=== PATIENT | female | born 1960 | race American Indian/Alaskan Native ===

== ENCOUNTER 2019-09-25 02:33 | Emergency (ER) | payer SELFPAY ==
[2019-09-25] MEDS ORDERED: LORazepam 2 MG/ML VIAL IV ONE (03:01)
--- NOTE | 2019-09-25 03:36 | Emergency Department Report ---
<NAHUM FLANAGAN - Last Filed: 09/25/19 05:42> ED General Adult HPI - General Chief complaint: High BP Stated complaint: HYPERTENSION Time Seen by Provider: 09/25/19 02:53 Source: EMS Mode of arrival: Stretcher Limitations: No Limitations - History of Present Illness Initial comments: 58-year-old female with a past medical history of COPD and hypertension presents to the hospital from [facility] with hypertension. Patient was admitted to [place] today for heroin and alcohol detox. Her blood pressure was elevated and she received clonidine 0.1 and Suboxone at 1 AM. Patient states she has had a headache intermittently today. No complaints of blurred vision, nausea, vomiting, or focal weakness or numbness. Patient complains of generalized intermittent body cramps and is restless and uncomfortable due to these cramps during my examination. Patient does not take any chronic hypertensive medication at home. - Related Data Previous Rx's Medication Instructions Recorded Last Taken Type Ciprofloxacin HCl [Ciprofloxacin 500 mg PO Q12HR 10 Days #20 tab 09/25/19 Unknown Rx TAB] amLODIPine 10 mg PO DAILY #30 tab 09/25/19 Unknown Rx hydroCHLOROthiazide [Hctz] 12.5 mg PO QDAY #30 capsule 09/25/19 Unknown Rx labetaloL [Labetalol 100mg TAB] 100 mg PO BID #60 tablet 09/25/19 Unknown Rx metroNIDAZOLE [Flagyl] 500 mg PO Q12HR 10 Days #20 tab 09/25/19 Unknown Rx Allergies Allergy/AdvReac Type Severity Reaction Status Date / Time No Known Allergies Allergy Verified 09/25/19 05:57 ED Review of Systems Comment: All other systems reviewed and negative ED Past Medical Hx - Past Medical History Previous Medical History?: Yes Hx Hypertension: Yes Hx COPD: Yes - Surgical History Past Surgical History?: No - Social History Smoking Status: Current Every Day Smoker Substance Use Type: Alcohol - Medications Home Medications: Home Medications Medication Instructions Recorded Confirmed Last Taken Type Ciprofloxacin HCl [Ciprofloxacin 500 mg PO Q12HR 10 Days #20 tab 09/25/19 Unknown Rx TAB] amLODIPine 10 mg PO DAILY #30 tab 09/25/19 Unknown Rx hydroCHLOROthiazide [Hctz] 12.5 mg PO QDAY #30 capsule 09/25/19 Unknown Rx labetaloL [Labetalol 100mg TAB] 100 mg PO BID #60 tablet 09/25/19 Unknown Rx metroNIDAZOLE [Flagyl] 500 mg PO Q12HR 10 Days #20 tab 09/25/19 Unknown Rx ED Physical Exam - General Limitations: No Limitations - Other Other exam information: General: No acute distress Head: Atraumatic Eyes: normal appearance ENT: Moist mucous membranes Neck: Normal appearance, no midline tenderness Chest: Clear to auscultation bilaterally CV: Mild tachycardia regular rhythm Abdomen: Soft, normal bowel sounds, nontender, nondistended, no rebound or guarding Back: Normal inspection Extremity: Normal inspection, full range of motion Neuro: Alert O x 3, no facial asymmetry, speech clear, no gross motor sensory deficit Psych: Restless, uncomfortable due to generalized muscle spasm Skin: No rash ED Medical Decision Making - Lab Data Result diagrams: 09/25/19 02:54 09/25/19 02:54 Lab Results 09/25/19 09/25/19 09/25/19 Range/Units 02:54 02:54 02:56 WBC 18.0 H (4.5-11.0) K/mm3 RBC 6.19 H (3.65-5.03) M/mm3 Hgb 17.0 H (10.1-14.3) gm/dl Hct 51.3 H (30.3-42.9) % MCV 83 (79-97) fl MCH 28 (28-32) pg MCHC 33 (30-34) % RDW 14.1 (13.2-15.2) % Plt Count 295 (140-440) K/mm3 Lymph % (Auto) 8.1 L (13.4-35.0) % Cowley % (Auto) 3.9 (0.0-7.3) % Eos % (Auto) 0.0 (0.0-4.3) % Baso % (Auto) 0.5 (0.0-1.8) % Lymph # 1.5 (1.2-5.4) K/mm3 Cowley # 0.7 (0.0-0.8) K/mm3 Eos # 0.0 (0.0-0.4) K/mm3 Baso # 0.1 (0.0-0.1) K/mm3 Seg Neutrophils % 87.5 H (40.0-70.0) % Seg Neutrophils # 15.7 H (1.8-7.7) K/mm3 Sodium 137 (137-145) mmol/L Potassium 3.6 (3.6-5.0) mmol/L Chloride 95.0 L (98-107) mmol/L Carbon Dioxide 23 (22-30) mmol/L Anion Gap 23 mmol/L BUN 13 (7-17) mg/dL Creatinine 0.8 (0.6-1.2) mg/dL Estimated GFR > 60 ml/min BUN/Creatinine Ratio 16 % Glucose 183 H (65-100) mg/dL Calcium 10.1 (8.4-10.2) mg/dL Magnesium 2.30 (1.7-2.3) mg/dL Total Bilirubin 0.60 (0.1-1.2) mg/dL AST 22 (5-40) units/L ALT 20 (7-56) units/L Alkaline Phosphatase 113 (35-129) units/L Total Protein 9.4 H (6.3-8.2) g/dL Albumin 5.2 H (3.9-5) g/dL Albumin/Globulin Ratio 1.2 % Urine Color (Yellow) Urine Turbidity (Clear) Urine pH (5.0-7.0) Ur Specific [place] (1.003-1.030) Urine Protein (Negative) mg/dL Urine Glucose (UA) (Negative) mg/dL Urine Ketones (Negative) mg/dL Urine Blood (Negative) Urine Nitrite (Negative) Urine Bilirubin (Negative) Urine Urobilinogen (<2.0) mg/dL Ur Leukocyte Esterase (Negative) Urine WBC (Auto) (0.0-6.0) /HPF Urine RBC (Auto) (0.0-6.0) /HPF U Epithel Cells (Auto) (0-13.0) /HPF Hyaline Casts /LPF Urine Mucus /HPF 08/18/20 Range/Units 04:18 WBC (4.5-11.0) K/mm3 RBC (3.65-5.03) M/mm3 Hgb (10.1-14.3) gm/dl Hct (30.3-42.9) % MCV (79-97) fl MCH (28-32) pg MCHC (30-34) % RDW (13.2-15.2) % Plt Count (140-440) K/mm3 Lymph % (Auto) (13.4-35.0) % Cowley % (Auto) (0.0-7.3) % Eos % (Auto) (0.0-4.3) % Baso % (Auto) (0.0-1.8) % Lymph # (1.2-5.4) K/mm3 Cowley # (0.0-0.8) K/mm3 Eos # (0.0-0.4) K/mm3 Baso # (0.0-0.1) K/mm3 Seg Neutrophils % (40.0-70.0) % Seg Neutrophils # (1.8-7.7) K/mm3 Sodium (137-145) mmol/L Potassium (3.6-5.0) mmol/L Chloride (98-107) mmol/L Carbon Dioxide (22-30) mmol/L Anion Gap mmol/L BUN (7-17) mg/dL Creatinine (0.6-1.2) mg/dL Estimated GFR ml/min BUN/Creatinine Ratio % Glucose (65-100) mg/dL Calcium (8.4-10.2) mg/dL Magnesium (1.7-2.3) mg/dL Total Bilirubin (0.1-1.2) mg/dL AST (5-40) units/L ALT (7-56) units/L Alkaline Phosphatase (35-129) units/L Total Protein (6.3-8.2) g/dL Albumin (3.9-5) g/dL Albumin/Globulin Ratio % Urine Color Yellow (Yellow) Urine Turbidity Clear (Clear) Urine pH 5.0 (5.0-7.0) Ur Specific [place] 1.024 (1.003-1.030) Urine Protein >500 (Negative) mg/dL Urine Glucose (UA) 50 (Negative) mg/dL Urine Ketones 80 (Negative) mg/dL Urine Blood Lg (Negative) Urine Nitrite Neg (Negative) Urine Bilirubin Neg (Negative) Urine Urobilinogen < 2.0 (<2.0) mg/dL Ur Leukocyte Esterase Neg (Negative) Urine WBC (Auto) 3.0 (0.0-6.0) /HPF Urine RBC (Auto) 7.0 (0.0-6.0) /HPF U Epithel Cells (Auto) 1.0 (0-13.0) /HPF Hyaline Casts 3 /LPF Urine Mucus 1+ /HPF - EKG Data -: EKG Interpreted by Me EKG shows normal: sinus rhythm, ST-T waves (NO STEMI) Rate: normal (84) - Radiology Data Radiology results: report reviewed CT head/brain wo con INDICATION / CLINICAL INFORMATION: Patient complains of a "Generalized" headache x 2 days.. TECHNIQUE: Axial CT imaging of the brain was obtained without contrast. Coronal and sagittal reformatted imaging obtained and reviewed. All CT scans at this location are performed using CT dose reduction for ALARA by means of automated exposure control. COMPARISON: None available. FINDINGS: No intracranial hemorrhage, mass, or midline shift is present. No extra-axial fluid collection or suggestion of acute territorial infarction. The ventricular system and basilar cisterns are unremarkable. Visualized paranasal sinuses and mastoid air cells are well aerated and clear. No calvarial abnormality. IMPRESSION: 1. Negative noncontrasted head CT - Medical Decision Making Patient presents to the ED with uncontrolled hypertension from [facility] where she has been admitted x1 day for alcohol and drug withdrawal. Patient received clonidine 0.1 mg p.o. prior to arrival. Patient's blood pressure started to trend downward further after Ativan IV provided for intermittent muscle spasms. Additional blood pressure can control achieved with the labetalol 10 mg IV. Patient does endorse a history of hypertension but is noncompliant with medications. Patient has underlying hypertension and active withdrawal from multiple substances might be contributing to poorly controlled blood pressure. CT head, EKG, and chest x-ray unremarkable. Patient does have a leukocytosis without signs and symptoms of infection in the urine or on chest x-ray. UA reveals ketosis suggesting dehydration which might also be contributing to increase WBC and hematocrit levels on CBC. Patient will be discharged back to [facility] with labetalol 100 mg twice daily prescription for hypertension. Vital signs reviewed and patient is documented as tachypneic however, I believe these are erroneous measurements due to artifact on the monitor and patient does not have any tachypnea, hypoxia, or respiratory distress in the ED. after labetolol 10mgIV bp still elevate 189/100. pt remains asymptomatic but I suspect this will be too elevated for patient to be re-accepted to the [facility]. Additional labetalol 10 mg IV ordered. Patient has been prepped for discharge but will be signed out to oncoming provider Dr. Grant to reassess in provide additional meds as needed for better blood pressure control prior to discharge 1/2 ns ordered during ed stay however pt is tolerating po and this can be discontinued upon d/c. NS not given due to incr bp and possible increased salt load. Patient prepped for discharge assuming no significant issues prohibiting discharge Critical Care Time: No ED Disposition Clinical Impression: Uncontrolled hypertension, Noncompliance with medication regimen, Alcohol abuse, Heroin abuse, Colitis Disposition: DC-01 TO HOME OR SELFCARE Is pt being admited?: No Does the pt Need Aspirin: No Condition: Stable Instructions: Hypertension (ED) Additional Instructions: Take the medication as prescribed. Follow-up with your doctor or doctor/clinic provided. Return if symptoms worsen as indicated by your discharge instructions. Prescriptions: amLODIPine 10 mg PO DAILY #30 tab Ciprofloxacin HCl [Ciprofloxacin TAB] 500 mg PO Q12HR 10 Days #20 tab metroNIDAZOLE [Flagyl] 500 mg PO Q12HR 10 Days #20 tab hydroCHLOROthiazide [Hctz] 12.5 mg PO QDAY #30 capsule labetaloL [Labetalol 100mg TAB] 100 mg PO BID #60 tablet Referrals: PRIMARY CARE, [Primary Care Provider] - 3-5 Days [facility] [Provider Group] - 3-5 Days <MONTSE GRANT - Last Filed: 09/25/19 15:18> ED Review of Systems ROS: Stated complaint: HYPERTENSION Other details as noted in HPI ED Course Vital Signs 09/25/19 09/25/19 09/25/19 02:34 02:38 02:46 Temperature 98.6 F Pulse Rate 87 74 72 Respiratory 31 H 15 37 H Rate Blood Pressure 214/124 Blood Pressure 214/124 [RIGHT ARM] O2 Sat by Pulse 98 95 96 Oximetry 09/25/19 09/25/19 09/25/19 03:00 03:16 03:30 Temperature Pulse Rate 94 H 85 92 H Respiratory 27 H 43 H 37 H Rate Blood Pressure 214/124 195/124 Blood Pressure [RIGHT ARM] O2 Sat by Pulse 98 96 96 Oximetry 09/25/19 09/25/19 09/25/19 03:45 04:00 04:16 Temperature Pulse Rate 118 H 90 88 Respiratory 25 H 43 H 44 H Rate Blood Pressure 192/127 192/127 192/127 Blood Pressure [RIGHT ARM] O2 Sat by Pulse 99 97 97 Oximetry 09/25/19 09/25/19 09/25/19 04:55 05:00 05:01 Temperature Pulse Rate Respiratory Rate Blood Pressure 188/108 201/120 188/104 Blood Pressure [RIGHT ARM] O2 Sat by Pulse Oximetry 09/25/19 09/25/19 09/25/19 05:30 06:00 06:02 Temperature Pulse Rate 80 Respiratory Rate Blood Pressure 212/125 209/123 209/123 Blood Pressure [RIGHT ARM] O2 Sat by Pulse 96 Oximetry 09/25/19 09/25/19 09/25/19 06:30 07:00 07:38 Temperature Pulse Rate 72 72 81 Respiratory 36 H 32 H 28 H Rate Blood Pressure 209/118 197/104 197/104 Blood Pressure [RIGHT ARM] O2 Sat by Pulse 93 90 Oximetry 09/25/19 09/25/19 09/25/19 08:00 08:30 08:49 Temperature Pulse Rate 73 90 Respiratory 34 H 25 H Rate Blood Pressure 223/134 197/104 223/134 Blood Pressure [RIGHT ARM] O2 Sat by Pulse 97 97 Oximetry 09/25/19 09/25/19 09/25/19 09:25 09:30 10:00 Temperature Pulse Rate Respiratory Rate Blood Pressure 161/95 208/125 194/107 Blood Pressure [RIGHT ARM] O2 Sat by Pulse Oximetry 09/25/19 09/25/19 09/25/19 10:30 11:00 11:28 Temperature Pulse Rate Respiratory Rate Blood Pressure 205/120 208/123 203/123 Blood Pressure [RIGHT ARM] O2 Sat by Pulse Oximetry 09/25/19 09/25/19 09/25/19 11:30 12:00 12:30 Temperature Pulse Rate 86 98 H 95 H Respiratory 30 H 24 38 H Rate Blood Pressure 199/108 154/94 159/92 Blood Pressure [RIGHT ARM] O2 Sat by Pulse 98 97 98 Oximetry 09/25/19 09/25/19 09/25/19 13:00 13:30 13:49 Temperature Pulse Rate 91 H 87 Respiratory 17 35 H Rate Blood Pressure 160/106 160/106 167/102 Blood Pressure [RIGHT ARM] O2 Sat by Pulse 97 98 Oximetry 09/25/19 14:01 Temperature Pulse Rate Respiratory Rate Blood Pressure 126/70 Blood Pressure [RIGHT ARM] O2 Sat by Pulse Oximetry ED Medical Decision Making - Lab Data Result diagrams: 09/25/19 02:54 09/25/19 02:54 - Radiology Data CT abdomen pelvis w con INDICATION / CLINICAL INFORMATION: Patient complains of abdominal pain with vomiting.. TECHNIQUE: Axial CT imaging of abdomen and pelvis was obtained with IV contrast. Coronal and sagittal reformatted imaging obtained and reviewed. All CT scans at this location are performed using CT dose reduction for ALARA by means of automated exposure control. COMPARISON: None available. FINDINGS: CT abdomen with IV contrast demonstrates normal appearance of the liver, spleen, pancreas, kidneys, and adrenal glands. No obvious gallbladder pathology or biliary dilatation. No renal mass or hydronephrosis. CT pelvis with contrast demonstrates normal appearance of the appendix. No pelvic mass, free fluid, or adenopathy. There is mild inflammatory change throughout the colon consistent with colitis. The remainder of the GI tract is unremarkable. Visualized lung bases are grossly clear. Review of osseous structures does not demonstrate any acute significant skeletal abnormality. There is grade 1 spondylolisthesis of L5/S1. IMPRESSION: 1. There is mild inflammatory change throughout the colon, consistent with mild colitis. 2. Incidentally noted grade 1 spondylolisthesis, L5-S1. Signer Name: Yesica Tran MD Signed: 09/25/2019 6:36 AM Workstation Name: [id number] - Medical Decision Making 58-year-old female signed out to me by my colleague for uncontrolled hypertension. Patient also has elevated WBCs of 18. Patient reported to me that she has been having some abdominal pain, vomiting and diarrhea. CT abdomen pelvis was obtained which shows mild colitis. Chest x-ray and urine are both negative. This is likely the etiology of her elevated white count. Patient given flagyl and levaquin. Patient has received multiple doses of antihypertensives, however still unable to get BP under control. Will admit to hospitalist for further management. Critical care attestation.: If time is entered above; I have spent that time in minutes in the direct care of this critically ill patient, excluding procedure time. ED Disposition Is pt being admited?: Yes Time of Disposition: 11:58
--- NOTE | 2019-09-25 04:04 | Cat Scan Report ---
CT head/brain wo con INDICATION / CLINICAL INFORMATION: Patient complains of a "Generalized" headache x 2 days.. TECHNIQUE: Axial CT imaging of the brain was obtained without contrast. Coronal and sagittal reformatted imaging obtained and reviewed. All CT scans at this location are performed using CT dose reduction for ALAR A by means of automated exposure control. COMPARISON: None available. FINDINGS: No intracranial hemorrhage, mass, or midline shift is present. No extra-axial fluid collection or sug gestion of acute territorial infarction. The ventricular system and basilar cisterns are unremarkable . Visualized paranasal sinuses and mastoid air cells are well aerated and clear. No calvarial abnormali ty. IMPRESSION: 1. Negative noncontrasted head CT Signer Name: Yesica Tran MD Signed: 09/25/2019 3:59 AM Workstation Name: [id number]
[2019-09-25 04:08] LABS: Basophils # (Auto) 0.1 K/mm3 (0.0-0.1); Basophils % (Auto) 0.5 % (0.0-1.8); Hematocrit 51.3 % (30.3-42.9); Lymphocytes # (Auto) 1.5 K/mm3 (1.2-5.4); Lymphocytes % (Auto) 8.1 % (13.4-35.0); Mean Corpuscular HGB Conc 33 % (30-34); Mean Corpuscular Volume 83 fl (79-97); Monocytes # (Auto) 0.7 K/mm3 (0.0-0.8); Monocytes % (Auto) 3.9 % (0.0-7.3); Platelet Count 295 K/mm3 (140-440); Red Blood Count 6.19 M/mm3 (3.65-5.03); Red Cell Distribution Width 14.1 % (13.2-15.2)
[2019-09-25 04:23] LABS: Alanine Aminotransferase 20 units/L (7-56); Albumin 5.2 g/dL (3.9-5); BUN/Creatinine Ratio 16; Blood Urea Nitrogen 13 mg/dL (7-17); Calcium 10.1 mg/dL (8.4-10.2); Hemolysis Index 23
[2019-09-25 04:53] LABS: Bilirubin,Urine NEG (Negative); Blood,Urine LG (Negative); Color,Urine Yellow (Yellow); Hyaline Casts,Urine 3 /LPF; Mucus,Urine 1+ /HPF; Urobilinogen,Urine < 2.0 mg/dL (<2.0)
[2019-09-25 05:10] LABS: Protein,Urine >500 mg/dL (Negative)
--- NOTE | 2019-09-25 05:14 | XRay Report ---
CHEST 1 VIEW INDICATION / CLINICAL INFORMATION: leukocytosis. COMPARISON: None available. FINDINGS: SUPPORT DEVICES: None. HEART / MEDIASTINUM: No significant abnormality. LUNGS / PLEURA: No significant pulmonary or pleural abnormality. No pneumothorax. ADDITIONAL FINDINGS: No significant additional findings. IMPRESSION: 1. No acute findings. No evidence of pneumonia. Signer Name: Yesica Tran MD Signed: 09/25/2019 5:09 AM Workstation Name: [id number]
[2019-09-25 05:27] LABS: Bacteria,Urine 1+ /HPF (Negative)
[2019-09-25] MEDS ORDERED: SODIUM CHLORIDE 0.45% 1000 ML 1,000 ML IV SCH (06:00)
[2019-09-25] MEDS ORDERED: hydrALAZINE 20 MG/1 ML INJ IV ONE ×3 (08:05→13:00)
[2019-09-25] MEDS ORDERED: metroNIDAZOLE 500 MG TAB PO ONE (10:58)
[2019-09-25] MEDS ORDERED: levoFLOXacin 500 MG TAB PO ONE (10:59)
--- NOTE | 2019-09-25 11:10 | Cat Scan Report ---
CT abdomen pelvis w con INDICATION / CLINICAL INFORMATION: Patient complains of abdominal pain with vomiting.. TECHNIQUE: Axial CT imaging of abdomen and pelvis was obtained with IV contrast. Coronal and sagittal reformatte d imaging obtained and reviewed. All CT scans at this location are performed using CT dose reduction for ALARA by means of automated exposure control. COMPARISON: None available. FINDINGS: CT abdomen with IV contrast demonstrates normal appearance of the liver, spleen, pancreas, kidneys, a nd adrenal glands. No obvious gallbladder pathology or biliary dilatation. No renal mass or hydroneph rosis. CT pelvis with contrast demonstrates normal appearance of the appendix. No pelvic mass, free fluid, o r adenopathy. There is mild inflammatory change throughout the colon consistent with colitis. The remainder of the GI tract is unremarkable. Visualized lung bases are grossly clear. Review of osseous structures does not demonstrate any acute significant skeletal abnormality. There i s grade 1 spondylolisthesis of L5/S1. IMPRESSION: 1. There is mild inflammatory change throughout the colon, consistent with mild colitis. 2. Incidentally noted grade 1 spondylolisthesis, L5-S1. Signer Name: Yesica Tran MD Signed: 09/25/2019 7:36 AM Workstation Name: [id number]
[2019-09-25] MEDS ORDERED: cloNIDine 0.2 MG TAB PO ONE (13:00)
[2019-09-25 16:56] VITALS: BP 135/86
== END 2019-09-25 16:34 | disposition home or self-care (01) ==
LOC: ED 02:33
DX: I10 Essential (primary) hypertension (principal); F10.10 Alcohol abuse, uncomplicated; F11.10 Opioid abuse, uncomplicated; K52.9 Noninfective gastroenteritis and colitis, unspecified; J44.9 Chronic obstructive pulmonary disease, unspecified; F17.200 Nicotine dependence, unspecified, uncomplicated; Z91.14 Patient's other noncompliance with medication regimen; Z79.899 Other long term (current) drug therapy
CPT/HCPCS: 36415; 70450; 71045; 74177; 80053; 81001; 83735; 85025; 93005; 96361; 96374; 96375; 96376; 99285; J0360; J2060; J7030; Q9967